=== PATIENT | male | born 1965 | race Caucasian/White ===

== ENCOUNTER 2023-01-01 07:11 | Emergency (ER) | payer SELFPAY ==
[2023-01-01 07:17] VITALS: BP 133/89; PULSE 72; RESP 20; TEMP 36.6; O2SAT 99
--- NOTE | 2023-01-01 07:30 | DI.RAD_ITS ---
Exam(s) XR HAND RT COMPLETE EXAM: XR HAND RT COMPLETE CLINICAL HISTORY: dog bite. TECHNIQUE: 2D digital imaging was performed of the right hand. Three images were obtained. AP, late ral and oblique views were obtained. COMPARISON: No exams were available for comparison FINDINGS: BONES: No acute fracture is present. No bony destructive lesion is seen. JOINTS: No dislocation present. The joint spaces are well maintained. SOFT TISSUE: The looks to be a bandage overlying the soft tissues of the medial hand and wrist. No r adiopaque foreign bodies are identified. IMPRESSION: No fracture, dislocation or foreign body. DATA REPOSITORY: RADIATION DOSE DELIVERED:
--- NOTE | 2023-01-01 07:39 | ED.GENADUL_ITS ---
Discharge Plan Discharge Details Chief Complaint: AnimalBite Primary Care Provider: None,None ED Provider: Kwadwo Luna Home Meds and New Rx's Prescriptions: No Action ibuprofen 400 mg Tablet 400 mg PO Q6H PRN Medical Decision Making Dog bite to the right hand. Patient's own dog. Patient not vaccinated but the dog will be observed. Patient given tetanus in the emergency department. Will be covered with doxycycline and Salagen given his allergies. Case discussed with Sarath Soliz from the hand service/Ortho at [facility]. They will call him for follow-up next week. The wound was irrigated profusely. X-rays did not reveal any fractures or foreign body. The wound was closed loosely. HPI General Date/Time Provider Initiated Documentation: 01/01/23 07:38 . HPI Narrative: 57-year-old male presents to the emergency department for evaluation of the dog bite to the right hand. His 2 dogs went to fight this morning around 630 he tried to separate them. One of the dogs bit him on the right hand. There is some skin tears on the dorsal aspect of the hand. He states he has full range of motion of the hand digits and wrist. He is not up-to-date with his tetanus shot. His dogs are not vaccinated but are behaving normally. He does not plan on putting the dogs down and we will be observing the dogs. Pain is obviously worse with touching and ranging. Better with rest. Better with ice. Related Data Home Medications Medication Instructions Recorded Confirmed ibuprofen 400 mg tablet 400 mg PO Q6H PRN 01/01/23 01/01/23 Allergies Allergy/AdvReac Type Severity Reaction Status Date / Time Penicillins AdvReac Intermediate Hives Unverified 01/01/23 07:24 General Stated Complaint: AnimalBite ÓSCAR: 4 Review of Systems Narrative: 10 point review of system is negative unless otherwise specified in the HPI PFSH Social History Smoking/Tobacco Use Status: Never Smoking risk assessment performed?: Yes Alcohol Intake: current Alcohol Intake frequency: a few times a month Drug use: Socially Substance use type: marijuana Do you feel safe at home: Yes Do you feel safe in your relationship?: Yes Exam Narrative Exam Narrative: Awake alert and oriented x3 calm no acute distress, pleasant and cooperative PERRLA EOMI MMM Normal work of breathing, normal cap refill Right hand. He has a few puncture wounds on the dorsal aspect of the hand and a 3 cm skin tear. Course The patient's wound was anesthetized with 10 mL of 1% lidocaine. Following good anesthetic results wound was explored. There is a large defect on the dorsal aspect. The extensor tendon of the fourth digit appears to be severed on the longitudinal aspect. From a functional perspective he has full extension with the digit, the third extensor tendon is also exposed but appears to be intact. He also has a longitudinal laceration at the fourth webspace. This appears to be superficial. Vital Signs Vital signs: Vital Signs Temperature 36.6 C 01/01/23 07:17 Pulse 72 01/01/23 07:17 Respiratory Rate 20 01/01/23 07:17 Blood Pressure 133/89 01/01/23 07:17 Pulse Oximetry 99 01/01/23 07:17 Temperature 36.6 C 01/01/23 07:17 Temperature Source Oral 01/01/23 07:17 Pulse 72 01/01/23 07:17 Respiratory Rate 20 01/01/23 07:17 Respiratory Effort Normal, Non-Labored 01/01/23 07:25 Blood Pressure 133/89 01/01/23 07:17 Pulse Oximetry 99 01/01/23 07:17 Oxygen Delivery Method Room Air 01/01/23 07:17 Oxygen Flow Rate 0 01/01/23 07:17 Procedures Laceration Laceration 1: Site: hand (right, dorsal aspect) Size (cm): 8 Description: flap and irregular Size (cm): 3-0 Number of sutures: 7 Technique: simple, interrupted PAWSS Have you Been Recently Intoxicated or Drunk Within the Last 30 days?: Yes Have you Ever Experienced Previous Episodes of Alcohol Withdrawal?: No Have you ever Experienced Withdrawal Seizures?: No Have you ever Experienced Delirium Tremens(DT)s?: No Have you ever undergone Alcohol Rehabilitation Treatment (i.e, inpt ot outpatient treatment programs)?: No Have you ever Experienced Blackouts?: No Have you ever Combined Alcohol with other Downers within the last 90 days?: No Result: 1
[2023-01-01] MEDS: Doxycycline Hyclate 100 MG CAP PO (08:21)
[2023-01-01] MEDS: metroNIDAZOLE 500 MG TAB PO (08:21)
== END 2023-01-01 09:34 | disposition home or self-care (01) ==
PROVIDERS: Emergency Provider Emergency Medicine
DX: S61.451A Open bite of right hand, initial encounter (principal); W54.0XXA Bitten by dog, initial encounter
CPT/HCPCS: 12004; 90471; 99284; 73130